=== PATIENT | female | born 1980 | race Two or more races ===

== ENCOUNTER 2019-04-23 16:37 | Emergency (ER) | payer SELFPAY ==
[~2019-04-23] VITALS: Ht 160 cm; Wt 59.0 kg
[2019-04-23 19:41] VITALS: BP 106/68
[2019-04-23] MEDS ORDERED: TETANUS-DIPTH-ACEL PERTUSSIS 0.5ML SYRG IM ONE (19:45)
== END 2019-04-23 19:49 | disposition home or self-care (01) ==
LOC: ER 16:37
DX: S81.851A Open bite, right lower leg, initial encounter (principal); Z98.51 Tubal ligation status; W54.0XXA Bitten by dog, initial encounter; Y93.89 Activity, other specified; Y99.8 Other external cause status; Y92.89 Other specified places as the place of occurrence of the external cause
CPT/HCPCS: 73590; 90471; 90715